=== PATIENT | male | born 1960 | race Caucasian/White ===

== ENCOUNTER → 2019-05-17 09:29 | Outpatient (CLI) | payer BC, SELFPAY ==
--- NOTE | 2019-05-17 09:39 | XR_ITS ---
XR elbow LT min 3V HISTORY: ITS.REASON: 3 views ORDERING PHYSICIAN: Bhavna King MD PATIENT AGE: 59 years COMPARISON: None FINDINGS: Bone density, and alignment are normal. There is subcapital spurring from the proximal radius. Lateral view shows possible few punctate ossific or calcific densities between the capitellum and the radial head although exact location is difficult to determine. This could also be between the coronoid process of the ulna and the trochlea. There is no indirect evidence of a joint effusion. There is no acute fracture. Impression: Degenerative changes as described. Possible punctate joint space loose bodies.
--- NOTE | 2019-05-17 09:39 | XR_ITS ---
XR wrist LT min 3V CLINICAL INDICATION: ITS.REASON: left wrist pain ORDERING PHYSICIAN: Bhavna King MD PATIENT AGE: 59 years Comparison: None FINDINGS: Bone density, joint spaces and alignment are normal. There is no acute fracture. Soft tissues are unremarkable. Lateral view however shows portions of the hand and there is a 5 mm linear calcific density within the soft tissues posteriorly at the level of a distal proximal phalanx although cannot determine which digit is involved. IMPRESSION: No acute process involving the wrist. Soft tissue calcification perhaps related to tendon or ligament posteriorly at the distal aspect of a proximal phalanx. However as discussed above because of overlap I cannot determine which digit is involved however I suspect this is probably the second or third digit.
== END ==
PROVIDERS: PCP Family Medicine; Visit Provider Orthopaedic Surgery
DX: M25.532 Pain in left wrist (principal); G56.22 Lesion of ulnar nerve, left upper limb
CPT/HCPCS: 73080; 73110

== ENCOUNTER → 2019-06-07 14:17 | Outpatient (CLI) | payer BC, SELFPAY ==
--- NOTE | 2019-06-07 14:25 | XR_ITS ---
PROCEDURE: XR CERVICAL SPINE MIN 6V CLINICAL INDICATION: neck pain Neck pain, shoulder pain COMPARISON: No exams were available for comparison FINDINGS: There is straightening/reversal of the normal lordosis which may be due to patient positioning or muscle spasm. Degenerative disc disease is present at C5-C6 and C6-C7 with loss of disc space and endplate osteophytes. There is mild foraminal narrowing on the right at C3-C4 and on the left is C3-C4 C4-C5 and C5-C6. Facet arthritic/hypertrophic changes are present at C3, C4, and C5 no cervical rib. IMPRESSION: Cervical spondylosis with degenerative disc disease, foraminal narrowing, and slight reversal of cervical lordosis Dictated by: Mike Young MD 06/07/2019 16:29 Signed by: <Electronically signed by Mike Young MD in [place]> 06/07/2019 16:29
--- NOTE | 2019-06-07 14:25 | XR_ITS ---
PROCEDURE: XR THORACIC SPINE 3V CLINICAL INDICATION: pain Back pain COMPARISON: No exams were available for comparison FINDINGS: No fracture or dislocation. No lytic or blastic change. There is mild multilevel degenerative disc disease with minimal osteophytes and decrease in the disc space. IMPRESSION: Mild degenerative disc disease, no acute finding Dictated by: Mike Young MD 06/07/2019 16:32 Signed by: <Electronically signed by Mike Young MD in [place]> 06/07/2019 16:32
--- NOTE | 2019-06-07 14:25 | XR_ITS ---
PROCEDURE: XR SHOULDER LT MIN 2V CLINICAL INDICATION: pain Left shoulder pain COMPARISON: No exams were available for comparison FINDINGS: Mild osteoarthritic changes are present at the glenohumeral joint. Mild hypertrophic changes are noted at the lateral aspect the humeral head and greater tuberosity with some subarticular cystic change also at this level. This may be seen with chronic rotator cuff disease. The acromioclavicular joint has an unremarkable appearance. IMPRESSION: Osteoarthritic changes of the glenohumeral joint with hypertrophic change at the greater tuberosity and subarticular cystic change which may be seen with rotator cuff disease Dictated by: Mike Young MD 06/07/2019 16:30 Signed by: <Electronically signed by Mike Young MD in [place]> 06/07/2019 16:30
== END ==
PROVIDERS: PCP Family Medicine; Visit Provider Orthopaedic Surgery
DX: R20.2 Paresthesia of skin; M54.2 Cervicalgia; M54.6 Pain in thoracic spine; M25.512 Pain in left shoulder
CPT/HCPCS: 72052; 72072; 73030

== ENCOUNTER → 2019-06-21 07:37 | Outpatient (CLI) | payer BC, SELFPAY ==
[2019-06-21 07:55] LABS: Blood Urea Nitrogen 17 mg/dL (7-18); Creatinine,Serum 1.03 mg/dL (0.70-1.30); Estimated Glomerular Filt Rate 73 ml/min (>60); GFR (African American) 89 ML/MIN (>60)
--- NOTE | 2019-06-21 08:15 | MR_ITS ---
PROCEDURE: MR FOREARM LT WO/W CON CLINICAL INDICATION: mass Left forearm and elbow pain with numbness with swelling around the elbow COMPARISON: 05/17/2019 TECHNIQUE: Multiplanar multi echo sequences are performed without and with contrast.. These images are obtained from the elbow to the wrist. The elbow and wrist are incompletely imaged. FINDINGS: No bony abnormalities are evident. No abnormal bone marrow edema, mass, or fracture apparent. No forearm mass or abnormal fluid collection is evident no enhancing lesions are apparent. No abnormal fluid collection. IMPRESSION: Negative MRI of the left forearm Dictated by: Mike Young MD 06/23/2019 11:41 Signed by: <Electronically signed by Mike Young MD in [place]> 06/23/2019 11:41
--- NOTE | 2019-06-21 08:21 | XR_ITS ---
PROCEDURE: XR ORBIT BILATERAL MIN 4V CLINICAL INDICATION: R/O METAL FB FOR MRI COMPARISON: No exams were available for comparison FINDINGS: No radiopaque foreign body apparent within the orbits IMPRESSION: Negative for orbital foreign body Dictated by: Mike Young MD 06/21/2019 16:09 Signed by: <Electronically signed by Mike Young MD in [place]> 06/21/2019 16:09
== END ==
PROVIDERS: PCP Family Medicine; Visit Provider Orthopaedic Surgery
DX: G56.20 Lesion of ulnar nerve, unspecified upper limb (principal); H05.53 Retained (old) foreign body following penetrating wound of bilateral orbits
CPT/HCPCS: 36415; 70200; 73220; 82565; 84520; A9576

== ENCOUNTER → 2019-07-22 12:53 | Outpatient (CLI) | payer BC, SELFPAY ==
--- NOTE | 2019-07-22 13:07 | MR_ITS ---
PROCEDURE: MR CERVICAL SPINE WO CON CLINICAL INDICATION: neck pain COMPARISON: No exams were available for comparison TECHNIQUE: Standard multiplanar multiecho sequences are performed without contrast. 3-D MIP and myelographic images are also rendered and reviewed FINDINGS: Alignment and vertebral body heights are normal. There is moderate loss of disc space height at C5-6 and C6-7 and mild loss of height at C7-T1 levels. There are type 2 subchondral degenerative marrow signal changes at C5, C6 and C7 levels. C3-4 shows minimal bulge without mass effect. C4-5 shows mild bulge slightly greater towards the left without mass effect. C5-6 shows diffuse chronic appearing mild bulge adjacent to the ventral cord without deformity in the AP diameter of the vertebral canal is 8.4 millimeters. C6-7 shows chronic mild bulge without mass effect. C7-T1 level shows diffuse disc protrusion close to the ventral cord without deformity. Only seen on sagittal images is a moderate protrusion at T2-3 level with mild ventral cord deformity. There are no axial images through this area. Multiple levels show various degrees of facet and uncovertebral joint hypertrophy with foraminal encroachment which is moderate on the left at C4-5, severe on the left at C4-5, moderate to severe bilaterally at C5-6 and C6-7 and moderate on the right at C7-T1 level. Paraspinal areas are unremarkable. Spinal cord is of normal signal and the foramen magnum area appears normal. IMPRESSION: Multiple levels of chronic degenerative disc disease as described with chronic bulges and there is mild acquired central canal stenosis at C5-6. Focal mild to moderate disc herniation centrally at T2-3. Multiple levels of spondylosis with facet arthrosis causing foraminal stenosis as discussed above. To better evaluate osseous foraminal stenosis suggest five view cervical spine series which should include the foraminal areas. Dictated by: Spike Razo 07/22/2019 15:36 Electronically signed by Spike Razo in [place] 07/22/2019 15:36
--- NOTE | 2019-07-22 13:07 | MR_ITS ---
PROCEDURE: MR SHOULDER LT WO CON CLINICAL INDICATION: shoulder pain COMPARISON: XR SHOULDER LT MIN 2V from 06/07/2019 TECHNIQUE: Routine FINDINGS: The signal from the osseous marrow elements are normal except there are prominent rounded foci of fluid signal with peripheral corticated margins suggesting subchondral cyst along the glenoid process of the scapula and along the posterior superior anatomic neck of the proximal humerus. This is associated with loss of the articular cartilage at the glenoid process and humeral head. There is a small subcapital humeral head spur as well. There is no fluid in the subacromial or subdeltoid bursa. There is moderate fluid in the long head of the biceps tendon sheath along with a oval-shaped filling defect of intermediate signal measuring 1.2 centimeters in size. Axial image number 20 from series number 3 and coronal image number 11 from series 7. There is some intermediate signal involving the inferior central aspect of the supraspinatus tendon without full-thickness signal abnormality. Superior labrum shows linear fluid signal extending laterally from the glenoid process. Signal from the surrounding muscles appear to be normal. IMPRESSION: Osteoarthritis at the glenohumeral joint with only small amount of fluid at the AC joint likely degenerative. Possible linear tear of the superior labrum. Supraspinatus tendinosis without full-thickness tear. Synovial chondromatosis causing filling defect in the fluid-filled long-head of the biceps tendon sheath. Dictated by: Spike Razo 07/22/2019 15:27 Electronically signed by Spike Razo in [place] 07/22/2019 15:27
[2019-07-22 13:14] LABS: Alanine Aminotransferase 41 U/L (12-78); Albumin/Globulin Ratio 1.1 (1.1-1.8); Alkaline Phosphatase 62 U/L (46-116); Anion Gap 10.9 mEq/L (5-15); Aspartate Amino Transferase 22 U/L (15-37); Bilirubin,Total 0.7 mg/dL (0.2-1.0); Blood Urea Nitrogen 18 mg/dL (7-18); Carbon Dioxide 30 mmol/L (21.0-32.0); Chloride 102 mmol/L (98-107); Creatinine,Serum 1.07 mg/dL (0.70-1.30); Estimated Glomerular Filt Rate 70 ml/min (>60); GFR (African American) 85 ML/MIN (>60); Globulin 3.7 gm/dl (1.3-3.2); Glucose 104 mg/dL (74-106); Potassium 3.9 mmoL/L (3.5-5.1); Sodium 139 mmol/L (136-145); Total Protein,Serum 7.7 gm/dL (6.4-8.2)
[2019-07-22 13:16] LABS: Basophils # 0.1 K/mm3 (0-0.2); Basophils % 0.9 % (0.1-2.0); Eosinophils # 0.3 K/mm3 (0.0-0.4); Eosinophils % 4.3 % (0.1-12.0); Hemoglobin 12.1 g/dL (14.1-18.0); Lymphocytes # 2.2 K/mm3 (0.7-4.5); Lymphocytes % 33.5 % (10-50); Mean Corpuscular HGB Conc 30.3 g/dL (31.8-35.4); Mean Corpuscular Volume 92.3 fl (80-94); Mean Platelet Volume 7.9 fl (7.4-10.4); Monocytes # 0.3 K/mm3 (0.1-1.0); Monocytes % 5.1 % (1.7-9.3); Neutrophils # 3.7 K/mm3 (1.8-7.8); Neutrophils % 56.2 % (37.0-80.0); Platelet Count 275 K/mm3 (142-424); Red Blood Count 4.33 M/mm3 (4.60-6.20); White Blood Count 6.5 K/mm3 (4.8-10.8)
== END ==
PROVIDERS: PCP Family Medicine; Visit Provider Orthopaedic Surgery
DX: M54.2 Cervicalgia (principal); M25.512 Pain in left shoulder; M79.602 Pain in left arm; R20.2 Paresthesia of skin
CPT/HCPCS: 36415; 72141; 73221; 76376; 80053; 85025